=== PATIENT | female | born 1980 | race Caucasian/White ===

== ENCOUNTER 2018-12-13 09:03 | Emergency (ER) | payer MEDICAID ==
[2018-12-13] MEDS ORDERED: Ibuprofen TAB* 400 MG PO ONE (09:42)
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
[2018-12-13 10:52] VITALS: BP 104/73
== END 2018-12-13 10:51 | disposition home or self-care (01) ==
LOC: ED 09:03
DX: S53.401A Unspecified sprain of right elbow, initial encounter (principal); V19.9XXA Pedal cyclist (driver) (passenger) injured in unspecified traffic accident, initial encounter; Y93.55 Activity, bike riding; F17.210 Nicotine dependence, cigarettes, uncomplicated; Z88.5 Allergy status to narcotic agent
CPT/HCPCS: 99282; A9270-GY

== ENCOUNTER 2019-02-06 01:57 | Emergency (ER) | payer MEDICAID, OTHER ==
[2019-02-06 02:05] VITALS: BP 167/114
--- NOTE | 2019-02-06 02:29 | ED ---
Skin Complaint - HPI Summary HPI Summary: This patient is a 38 year old F presenting to ED with a chief complaint of LUE pain since two days ago. Patient states she was bitten by a spider. She reports left forearm swelling and erythema. Patient admits to injecting meth, but states this injury is unrelated as she states she injects higher up from the site of the swelling. Patient previously had an abscess in her right arm in 2016. She states this does not feel the same. The patient rates the pain 5/10 in severity. Pain worse w movement of arm. Patient reports fever yesterday. - History of Current Complaint Chief Complaint: EDRashSkinAbscess Time Seen by Provider: 02/06/19 02:16 Stated Complaint: ABSCESS ON LT ARM PER PT Hx Obtained From: Patient Onset/Duration: Started Days Ago - 2 days, Still Present Timing: Constant, Lasting Days - Since 2 days Onset Severity: Moderate Current Severity: Moderate Pain Intensity: 5 Pain Scale Used: 0-10 Numeric Skin Location: Arm - Left forearm Character: Swelling, Redness Aggravating Symptom(s): Nothing Alleviating Symptom(s): Nothing Associated Signs & Symptoms: Fever Related History: Insect Bite/Sting - Subjective spider bite - Allergy/Home Medications Allergies/Adverse Reactions: Allergies Allergy/AdvReac Type Severity Reaction Status Date / Time hydrocodone [From Vicodin] Allergy Swelling Verified 02/06/19 02:05 PMH/Surg Hx/FS Hx/Imm Hx Endocrine/Hematology History: Denies: Hx Diabetes Cardiovascular History: Denies: Hx Hypertension - Surgical History Surgery Procedure, Year, and Place: Denies Infectious Disease History: No Infectious Disease History: Denies: Hx Clostridium Difficile, Hx Hepatitis, Hx Human Immunodeficiency Virus (HIV), Hx of Known/Suspected MRSA, Hx Shingles, Hx Tuberculosis, Hx Known/ Suspected VRE, Hx Known/Suspected VRSA, History Other Infectious Disease, Traveled Outside the [place] in Last 30 Days - Family History Known Family History: Negative: Hypertension, Diabetes - Social History Alcohol Use: None Hx Substance Use: Yes Substance Use Type: Reports: Other - Meth. Denies: Heroin Hx Tobacco Use: Yes Smoking Status (MU): Heavy Every Day Tobacco Smoker Type: Cigarettes Amount Used/How Often: 1/2 ppd Length of Time of Smoking/Using Tobacco: 20 yrs Have You Smoked in the Last Year: Yes Review of Systems Positive: Fever - Yesterday Skin: Other - Left forearm swelling and erythema All Other Systems Reviewed And Are Negative: Yes Physical Exam - Summary Physical Exam Summary: General: Well appearing, no distress HEENT: PERRL Cardiovascular: Skin is well perfused Pulmonary: No respiratory distress, no tachypnea Abdomen: Non-distended Skin: 6x8cm area of fluctuance on the left forearm with surrounding erythema MSK: tenderness to L forearm near site of abscess. Psych: Normal affect Neuro: A&Ox3 Triage Information Reviewed: Yes Vital Signs On Initial Exam: Initial Vitals Temp Pulse Resp BP Pulse Ox 98.8 F 105 18 167/114 100 02/06/19 02:02 02/06/19 02:02 02/06/19 02:02 02/06/19 02:02 02/06/19 02:02 Vital Signs Reviewed: Yes Procedures - Procedure Summary Procedure Summary: Performed bedside ultrasound of LUE. Visualized large fluid collection of left forearm. I&D: informed consent obtained. Standard I&D procedure followed. Patient received local lidocaine injection. Abscess was drained without complication. Significant amount of purulent drainage. - Incision and Drainage Left Arm Site: Left forearm Anesthesia: Local, Lidocaine Instrument(s): Scalpel - Ultrasound LUE Ultrasound: normal - Bedside US to visualize abscess Diagnostics - Vital Signs Vital Signs Temp Pulse Resp BP Pulse Ox 02/06/19 02:02 98.8 F 105 18 167/114 100 - Laboratory Result Diagrams: 02/06/19 02:57 02/06/19 02:57 Lab Statement: Any lab studies that have been ordered have been reviewed, and results considered in the medical decision making process. - CT LUE CT Interpretation Completed By: Radiologist Summary of CT Findings: 1. Irregular shaped, septated fluid collection lateral to the mid radius. This could represent injected fluid collection, abscess, or hematoma. 2. Edematous or inflammatory change involving the subcutaneous fat adjacent to the ulna. Dr. Read has reviewed this radiology report. Re-Evaluation - Re-Evaluation First Eval Re-Evaluation Time: 05:40 Change: Improved Comment: Drained abscess without complication. Bedside US used to visualize drainage. Informed consent obtained. Standard I&D procedure followed. Patient declines admission to hospital for IV abx. Patient will be signed out AMA with dx of abscess and substance use disorder. Patient advised to repeat preg test in one week due to indeterminate result. Course/Dx - Course Course Of Treatment: 38-year-old female with a history of IV drug use presents with left forearm swelling erythema. Physical exam of the 6 x 8 cm area of fluctuance, concern for abscess. Given risk factors of IVDU will check a CT scan prior to I&D to evaluate for deep space infection and FB, check blood cultures. - Diagnoses Provider Diagnoses: Abscess, Substance use disorder Discharge ED - Sign-Out/Discharge Documenting (check all that apply): Patient Departure - AMA Patient Received Moderate/Deep Sedation with Procedure: No - Discharge Plan Condition: Stable Disposition: AGAINST MEDICAL ADVICE Prescriptions: Clindamycin Cap(NF) [Clindamycin Cap 300 mg Cap(NF)] 300 mg PO Q6H 7 Days #28 cap Patient Education Materials: Methamphetamine Abuse (ED), Abscess (ED), Polysubstance Abuse (ED) Referrals: [facility] [Outside] Additional Instructions: You were seen in the emergency department for an abscess of your left arm. This is likely secondary to injecting drugs. We were able to remove some of the abscess however we are unlikely able to remove all at this time. We advised you stay for IV antibiotics and reevaluation but you declined. If you change your mind please return to emergency department for re-evaluation. Please take clindamycin for 7 days. - Billing Disposition and Condition Condition: STABLE Disposition: Against Medical Advice - Attestation Statements Document Initiated by Nahed: Yes Documenting Scribe: Faustino Dawkins Provider For Whom Nahed is Documenting (Include Credential): Teofilo Read MD Scribe Attestation: I, Faustino Dawkins, scribed for Teofilo Read MD on 02/06/19 at 0558. Scribe Documentation Reviewed: Yes Provider Attestation: The documentation as recorded by the Faustino barney accurately reflects the service I personally performed and the decisions made by me, Teofilo Read MD Status of Scribe Document: Viewed
[2019-02-06 03:26] LABS: Albumin 3.8 g/dL (3.2-5.2); Albumin/Globulin Ratio 1.1 (1-3); BUN/Creatinine Ratio 26.6 (8-20); Calcium 9.3 mg/dL (8.6-10.3); EGFR Non-African American 103.3 (>60); Globulin 3.4 g/dL (2-4); Total Bilirubin 0.3 mg/dL (0.2-1.0); Total Protein 7.2 g/dL (6.4-8.9)
[2019-02-06 03:32] LABS: HCG Pregnancy 6.29 mIU/mL
[2019-02-06 03:38] LABS: Hematocrit 36 % (35-47); Hemoglobin 12.3 g/dL (12.0-16.0); Mean Corpuscular HGB Conc 34 g/dL (31-36); Mean Corpuscular Hemoglobin 31 pg (27-31); Mean Corpuscular Volume 91 fL (80-97); Red Blood Count 3.94 10^6 /uL (3.70-4.87); Red Cell Distribution Width 13 % (10-15); White Blood Count 17.7 10^3/uL (3.5-10.8)
[2019-02-06] MEDS ORDERED: Clindamycin 600 MG IVPREMIX(* 600 MG/50 ML SDV IV ONE (03:48)
[2019-02-06 03:59] LABS: Potassium 3.6 mmol/L (3.5-5.0)
[2019-02-06 04:01] LABS: Platelet Count Platelets clumped. 10^3/uL (150-450)
[2019-02-06 04:02] LABS: ABS Basophils 0.1 10^3/ul (0-0.2); ABS Eosinophils 0.2 10^3/ul (0-0.6); ABS Lymphocytes 3.2 10^3/ul (1.0-4.8); ABS Monocytes 1.4 10^3/ul (0-0.8); ABS Neutrophils 12.7 10^3/ul (1.5-7.7); Eosinophil % 1.4 %; Lymphocyte % 18.2 %
[2019-02-06] MEDS ORDERED: Iohexol 300* (CONTRAST) 10 ML SDV IV ONE (04:02)
[2019-02-06] MEDS ORDERED: Lidocaine 2.5%/Prilocain 2.5%* 5 GM TUBE TOPICAL ONE (04:14)
[2019-02-06] MEDS ORDERED: Nicotine Lozenge* mini 4 MG LOZNG.MINI MT PRN (04:26)
== END 2019-02-06 06:48 | disposition left against medical advice (07) ==
LOC: ED 01:57
DX: L02.414 Cutaneous abscess of left upper limb (principal); F15.90 Other stimulant use, unspecified, uncomplicated; Z88.5 Allergy status to narcotic agent; F17.210 Nicotine dependence, cigarettes, uncomplicated
CPT/HCPCS: 10060; 36415; 80053; 84702; 85025; 87040; 87070; 87205; 96365; 99283; A9270-GY; Q9967

== ENCOUNTER 2020-06-12 14:23 | Inpatient (IN) ==
[2020-06-12] MEDS ORDERED: NS 0.9% 1000 ml BAG 1,000 ML IV ONE (15:30)
[2020-06-12] MEDS ORDERED: Gadoteridol (CONTRAST) 279.3 MG/ML 10 ML IV ONE (16:10)
[2020-06-12] MEDS ORDERED: Morphine 4 MG/ML VIAL (1 ml) IV ONE ×2 (16:32→17:18)
[2020-06-12 16:40] LABS: ABS Eosinophils 0.1 10^3/ul (0-0.6); ABS Lymphocytes 0.8 10^3/ul (1.0-4.8); ABS Monocytes 0.3 10^3/ul (0-0.8); ABS Neutrophils 11.9 10^3/ul (1.5-7.7); Eosinophil % 0.5 %; Hematocrit 39 % (35-47); Hemoglobin 12.8 g/dL (12.0-16.0); Lymphocyte % 6.4 %; Mean Corpuscular HGB Conc 33 g/dL (31-36); Mean Corpuscular Hemoglobin 28 pg (27-31); Mean Corpuscular Volume 84 fL (80-97); Mean Platelet Volume 7.1 fL (7.4-10.4); Platelet Count 467 10^3/uL (150-450); Red Blood Count 4.62 10^6 /uL (3.70-4.87); Red Cell Distribution Width 14 % (10-15); White Blood Count 13.1 10^3/uL (3.5-10.8)
[2020-06-12 16:42] LABS: Albumin 3.7 g/dL (3.2-5.2); Albumin/Globulin Ratio 1.1 (1-3); BUN/Creatinine Ratio 9.8 (8-20); C Reactive Protein 41.53 mg/L (<8.01); Calcium 9.1 mg/dL (8.6-10.3); EGFR African American 161.6 (>60); EGFR Non-African American 133.6 (>60); Globulin 3.5 g/dL (2-4); Potassium 4.1 mmol/L (3.5-5.0); Total Bilirubin 0.3 mg/dL (0.2-1.0); Total Protein 7.2 g/dL (6.4-8.9)
[2020-06-12] MEDS ORDERED: Morphine 4 MG/ML VIAL (1 ml) ONE (17:20)
[2020-06-12] MEDS ORDERED: HYDROmorphone 1 MG/1 ML SYRINGE IV SLOW PU ONE ×2 (18:04→19:54)
[2020-06-12] MEDS: Ondansetron 4 mg VIAL 2 MG/ML 2 ml VIAL IV ONE ×2 (18:06→18:54)
[2020-06-12] MEDS ORDERED: cefTRIAXone 2 GM ADDV.VIAL 2 GM in NS 0.9% 100 ml BAG 100 ML IVPB ONE (18:23)
[2020-06-12 18:29] LABS: Erythrocyte Sed Rate 49 mm/Hr (0-19)
[2020-06-12] MEDS ORDERED: Vancomycin 1,000 MG BAG/ADDV ONE (18:33)
[2020-06-12] MEDS ORDERED: cefTRIAXone 2 GM ADDV.VIAL ONE (18:33)
[2020-06-12] MEDS ORDERED: Vancomycin 1,000 MG in NS 0.9% 250 ml 250 ML IVPB ONE (19:00)
[2020-06-12] MEDS ORDERED: Vancomycin per Pharmacy 1 EA NOTE FOLLOW UP SCH (20:00)
[2020-06-12] MEDS ORDERED: Ondansetron 4 mg VIAL 2 MG/ML 2 ml VIAL IV PRN (20:00)
[2020-06-12 20:23] LABS: Urine Appearance Cloudy; Urine Bilirubin Negative (Negative); Urine Blood Negative (Negative); Urine Color Yellow; Urine Glucose Negative (Negative); Urine Ketones Negative (Negative); Urine Nitrite Negative (Negative); Urine Protein Negative (Negative); Urine Specific Gravity 1.023 (1.010-1.030); Urine Urobilinogen Negative (Negative)
[2020-06-12 21:15] LABS: HIV 4th Generation Nonreactive (Nonreactive)
[2020-06-12 21:54] LABS: Hepatitis C Antibody Reactive (Negative)
[2020-06-12] MEDS: HYDROmorphone 0.5 MG/0.5 ML SYRINGE IV SLOW PU PRN (22:13)
[2020-06-13] MEDS: Vancomycin 750 MG in NS 0.9% 250 ML IVPB SCH ×4 (00:07→19:56)
[2020-06-13] MEDS: oxyCODONE/Acetamin 5/325 mg TAB PO PRN ×7 (00:19→21:00)
[2020-06-13] MEDS: HYDROmorphone 0.5 MG/0.5 ML SYRINGE IV SLOW PU PRN (01:13)
[2020-06-13] MEDS: HYDROmorphone 1 MG/1 ML SYRINGE IV SLOW PU PRN ×7 (04:04→22:33)
[2020-06-13 07:07] LABS: ABS Basophils 0.1 10^3/ul (0-0.2); ABS Eosinophils 0.1 10^3/ul (0-0.6); ABS Lymphocytes 3.2 10^3/ul (1.0-4.8); ABS Monocytes 1.2 10^3/ul (0-0.8); ABS Neutrophils 9.2 10^3/ul (1.5-7.7); Eosinophil % 0.5 %; Hematocrit 33 % (35-47); Hemoglobin 11.1 g/dL (12.0-16.0); Lymphocyte % 23.1 %; Mean Corpuscular HGB Conc 34 g/dL (31-36); Mean Corpuscular Hemoglobin 28 pg (27-31); Mean Corpuscular Volume 83 fL (80-97); Mean Platelet Volume 6.8 fL (7.4-10.4); Platelet Count 417 10^3/uL (150-450); Red Blood Count 3.98 10^6 /uL (3.70-4.87); Red Cell Distribution Width 14 % (10-15); White Blood Count 13.8 10^3/uL (3.5-10.8)
[2020-06-13 07:25] LABS: BUN/Creatinine Ratio 15.1 (8-20); C Reactive Protein 26.53 mg/L (<8.01); Calcium 7.8 mg/dL (8.6-10.3); EGFR African American 154.6 (>60); EGFR Non-African American 127.8 (>60); Globulin 2.9 g/dL (2-4); Potassium 3.6 mmol/L (3.5-5.0); Total Bilirubin 0.2 mg/dL (0.2-1.0); Total Protein 5.9 g/dL (6.4-8.9)
[2020-06-13] MEDS: NS 0.9% 1000 ml BAG 1,000 ML IV SCH ×2 (07:47→17:24)
[2020-06-13] MEDS ORDERED: Iohexol 350 (CONTRAST) 500 ML MDV IV ONE (08:52)
[2020-06-13] MEDS: cefTRIAXone 2 GM ADDV.VIAL 2 GM in NS 0.9% 100 ml BAG 100 ML IV SCH (17:24)
[2020-06-13] MEDS ORDERED: Vancomycin Trough Check NOTE FOLLOW UP ONE (18:00)
[2020-06-13] MEDS: Vancomycin 1000 MG in NS 0.9% 250 ML IVPB SCH (23:39)
[2020-06-14] MEDS: HYDROmorphone 1 MG/1 ML SYRINGE IV SLOW PU PRN ×7 (01:34→22:10)
[2020-06-14] MEDS: oxyCODONE/Acetamin 5/325 mg TAB PO PRN ×6 (03:45→19:29)
[2020-06-14] MEDS: Vancomycin 1000 MG in NS 0.9% 250 ML IVPB SCH ×3 (05:43→16:36)
[2020-06-14 07:07] LABS: ABS Basophils 0.1 10^3/ul (0-0.2); ABS Eosinophils 0.2 10^3/ul (0-0.6); ABS Lymphocytes 2.2 10^3/ul (1.0-4.8); ABS Neutrophils 8.5 10^3/ul (1.5-7.7); Eosinophil % 1.9 %; Hematocrit 36 % (35-47); Hemoglobin 11.8 g/dL (12.0-16.0); Lymphocyte % 18.1 %; Mean Corpuscular HGB Conc 33 g/dL (31-36); Mean Corpuscular Hemoglobin 27 pg (27-31); Mean Corpuscular Volume 84 fL (80-97); Mean Platelet Volume 7.1 fL (7.4-10.4); Platelet Count 407 10^3/uL (150-450); Red Blood Count 4.33 10^6 /uL (3.70-4.87); Red Cell Distribution Width 14 % (10-15); White Blood Count 11.9 10^3/uL (3.5-10.8)
[2020-06-14] MEDS: NS 0.9% 1000 ml BAG 1,000 ML IV SCH ×2 (07:41→23:15)
[2020-06-14 08:23] LABS: Blood Urea Nitrogen 6 mg/dL (6-24); CO2 Carbon Dioxide 22 mmol/L (22-32); Calcium 7.8 mg/dL (8.6-10.3); Chloride 109 mmol/L (101-111); EGFR African American 165.3 (>60); EGFR Non-African American 136.6 (>60); Glucose 93 mg/dL (70-100); Sodium 137 mmol/L (135-145)
[2020-06-14 10:09] LABS: Anion Gap 6 mmol/L (2-11)
[2020-06-14] MEDS ORDERED: Senna TAB 8.6 mg TAB PO ONE (11:02)
[2020-06-14] MEDS: cefTRIAXone 2 GM ADDV.VIAL 2 GM in NS 0.9% 100 ml BAG 100 ML IV SCH (18:26)
[2020-06-15] MEDS: HYDROmorphone 1 MG/1 ML SYRINGE IV SLOW PU PRN ×7 (01:10→22:44)
[2020-06-15] MEDS: Vancomycin 1000 MG in NS 0.9% 250 ML IVPB SCH ×4 (01:10→22:50)
[2020-06-15] MEDS: oxyCODONE/Acetamin 5/325 mg TAB PO PRN ×5 (02:47→22:34)
[2020-06-15] MEDS ORDERED: Vancomycin Trough Check NOTE FOLLOW UP ONE (06:00)
[2020-06-15] MEDS: Senna TAB 8.6 mg TAB PO SCH (07:48)
[2020-06-15 07:54] LABS: ABS Eosinophils 0.2 10^3/ul (0-0.6); ABS Lymphocytes 2.5 10^3/ul (1.0-4.8); ABS Monocytes 0.6 10^3/ul (0-0.8); Eosinophil % 2.4 %; Hematocrit 38 % (35-47); Hemoglobin 12.5 g/dL (12.0-16.0); Lymphocyte % 29.7 %; Mean Corpuscular HGB Conc 33 g/dL (31-36); Mean Corpuscular Hemoglobin 28 pg (27-31); Mean Corpuscular Volume 83 fL (80-97); Mean Platelet Volume 6.8 fL (7.4-10.4); Platelet Count 412 10^3/uL (150-450); Red Blood Count 4.53 10^6 /uL (3.70-4.87); Red Cell Distribution Width 14 % (10-15); White Blood Count 8.3 10^3/uL (3.5-10.8)
[2020-06-15 08:05] LABS: BUN/Creatinine Ratio 12.1 (8-20); CRP High Sensitivity 21.7 mg/L (<2.00); Calcium 7.9 mg/dL (8.6-10.3); EGFR Non-African American 99.2 (>60); Potassium 3.7 mmol/L (3.5-5.0)
[2020-06-15 13:33] LABS: TB1 Ag minus Nil Result -0.02 IU/mL
[2020-06-15 13:36] LABS: QuantiferonTb Gold Plus Result Negative (Negative)
[2020-06-15] MEDS ORDERED: Buffered Lidocaine 1% SYRIN 1 ml INTRADERM ONE (13:51)
[2020-06-15] MEDS: NS 0.9% 1000 ml BAG 1,000 ML IV SCH (16:45)
[2020-06-15] MEDS: cefTRIAXone 2 GM ADDV.VIAL 2 GM in NS 0.9% 100 ml BAG 100 ML IV SCH (19:46)
[2020-06-16] MEDS: oxyCODONE/Acetamin 5/325 mg TAB PO PRN ×4 (02:33→17:07)
[2020-06-16] MEDS: HYDROmorphone 1 MG/1 ML SYRINGE IV SLOW PU PRN ×7 (02:34→23:50)
[2020-06-16] MEDS: Vancomycin 1000 MG in NS 0.9% 250 ML IVPB SCH ×4 (05:40→23:43)
[2020-06-16 05:51] LABS: ABS Eosinophils 0.2 10^3/ul (0-0.6); ABS Lymphocytes 2.5 10^3/ul (1.0-4.8); ABS Monocytes 0.6 10^3/ul (0-0.8); ABS Neutrophils 4.7 10^3/ul (1.5-7.7); Eosinophil % 2.6 %; Hematocrit 36 % (35-47); Hemoglobin 12.1 g/dL (12.0-16.0); Lymphocyte % 31.1 %; Mean Corpuscular HGB Conc 33 g/dL (31-36); Mean Corpuscular Hemoglobin 27 pg (27-31); Mean Corpuscular Volume 83 fL (80-97); Mean Platelet Volume 6.9 fL (7.4-10.4); Platelet Count 417 10^3/uL (150-450); Red Blood Count 4.41 10^6 /uL (3.70-4.87); Red Cell Distribution Width 14 % (10-15)
[2020-06-16 06:04] LABS: BUN/Creatinine Ratio 17.9 (8-20); Calcium 8.1 mg/dL (8.6-10.3); EGFR African American 145.1 (>60); EGFR Non-African American 119.9 (>60); Potassium 3.9 mmol/L (3.5-5.0)
[2020-06-16] MEDS: Senna TAB 8.6 mg TAB PO SCH (08:43)
[2020-06-16] MEDS: cefTRIAXone 2 GM ADDV.VIAL 2 GM in NS 0.9% 100 ml BAG 100 ML IV SCH (19:42)
[2020-06-17] MEDS: HYDROmorphone 1 MG/1 ML SYRINGE IV SLOW PU PRN ×2 (05:38→12:04)
[2020-06-17] MEDS: Vancomycin 1000 MG in NS 0.9% 250 ML IVPB SCH ×2 (05:40→12:05)
[2020-06-17] MEDS: Senna TAB 8.6 mg TAB PO SCH (10:20)
[2020-06-17] MEDS ORDERED: Vancomycin Trough Check NOTE FOLLOW UP ONE (10:30)
[2020-06-17] MEDS ORDERED: HYDROmorphone 1 MG/1 ML SYRINGE IV SLOW PU PRN (15:30)
[2020-06-17] MEDS: Vancomycin 1,250 MG in NS 0.9% 250 ml 250 ML IVPB SCH (18:13)
[2020-06-17] MEDS: cefTRIAXone 2 GM ADDV.VIAL 2 GM in NS 0.9% 100 ml BAG 100 ML IV SCH (20:21)
[2020-06-18] MEDS: Vancomycin 1,250 MG in NS 0.9% 250 ml 250 ML IVPB SCH (02:23)
[2020-06-18 03:11] VITALS: BP 108/56
[2020-06-19] MEDS ORDERED: Vancomycin Trough Check NOTE FOLLOW UP ONE (09:30)
== END 2020-06-18 04:40 | disposition left against medical advice (07) | DRG 344 ==
LOC: ED 14:23 → MEDTELE 19:16 → SSU 06-14 23:00
PROVIDERS: ADMIT Internal Medicine; ATTEND Internal Medicine